=== PATIENT | female | born 1945 | race Caucasian/White ===

== ENCOUNTER → 2020-08-07 13:47 | Outpatient (BNVA) | payer MEDICARE, OTHER, SELFPAY ==
--- NOTE | 2020-08-07 | FL_ITS ---
EXAMINATION: XR FLUOROSCOPY CLINICAL INFORMATION: Right knee osteoarthritis. COMPARISON: Radiographs dated 12/01/2018 TECHNIQUE: 3 views of the right knee are submitted as part of the procedure. FLUOROSCOPY TIME: 0.3 minutes DOSE AREA PRODUCT: 0.782 Gy-cm2 (perez-centimeter squared) FINDINGS/IMPRESSION: 3 needles are placed in the right knee, terminating at the medial and lateral margins of the distal femoral metadiaphysis and at the medial margin of the proximal tibial metaphysis.
== END ==
PROVIDERS: Visit Provider Anesthesiology
DX: M17.11 Unilateral primary osteoarthritis, right knee (principal); M96.1 Postlaminectomy syndrome, not elsewhere classified; Z96.82 Presence of neurostimulator; Z98.1 Arthrodesis status
CPT/HCPCS: 64454

== ENCOUNTER → 2020-08-20 11:09 | Outpatient (BNVA) | payer OTHER, MEDICARE, SELFPAY | PROVIDERS: Visit Provider Anesthesiology | DX: Z76.89 Persons encountering health services in other specified circumstances (principal) ==